=== PATIENT | male | born 1960 | race Caucasian/White ===

== ENCOUNTER → 2017-06-02 | Outpatient (CLI) | payer SELFPAY ==
[~2017-06-02] MED LIST: BUPR-126 PO; IBUP600T22 PO; KET10 PO; LOR1 PO; LOR5/325 PO; LORA-1456 PO
== END ==
LOC: LAB 11:03
PROVIDERS: ATTEND Otolaryngology
DX: D14.0 Benign neoplasm of middle ear, nasal cavity and accessory sinuses (principal)
CPT/HCPCS: 88305